=== PATIENT | male | born 1945 ===

== ENCOUNTER 2023-11-22 09:01 | Outpatient (OUT) | payer MEDICARE, MEDICAID, SELFPAY ==
--- NOTE | 2023-11-22 | XR_ITS ---
The [address] [id number] Patient Name: CARRI SMITH MRN: [id number] date: 1945 Sex: M Assigned Patient Location: Current Patient Location: Accession/Order Number: [id number] Exam Date: 11/22/2023 09:02 Report Date: 11/23/2023 06:53 At the request of: DA STOKES Procedure: XR lumbar spine min 4V EXAMINATION: XR lumbar spine min 4V HISTORY: LUMBAR SPINE PAIN COMPARISON: No relevant comparison available. FINDINGS: BONES: Mechanical fusion L2-S1 via bilateral pedicle screws and rods; no appreciable fracture or loosening. Posterior decompression of L3-L4-5. Osseous fusion of the facet joints with some bone encroachment on the neural foramen. Minimal grade 1 retrolisthesis of L1 on 2 and L2 on 3 and; no appreciable change in alignment during flexion and extension. Mild anterior wedging of T11 and T12 vertebral bodies. DISC SPACES: Marked narrowing L1-L2. Moderate narrowing at remaining lumbar levels. PARASPINOUS: Negative. No paraspinous abnormality is seen. OTHER: Negative. XR/XR lumbar spine min 4V IMPRESSION: 1. Surgical changes and chronic degenerative changes as detailed above. No prior studies for comparison. Electronically authenticated by: TRINI DOE Date: 11/23/2023 06:53
== END 2023-11-22 09:02 | disposition home or self-care (01) ==
LOC: EC 09:01
PROVIDERS: Visit Provider Orthopaedic Surgery Orthopaedic Surgery of the Spine
DX: M43.16 Spondylolisthesis, lumbar region (principal)
CPT/HCPCS: 72110